=== PATIENT | male | born 1980 | race Caucasian/White ===

== ENCOUNTER 2021-02-09 02:14 | Emergency (ER) | payer OTHER ==
[2021-02-09] MEDS ORDERED: LODINE CAP 300300 MG PO (03:00)
[2021-02-09] MEDS ORDERED: VENTOLIN HFA 66.7 GM INH (03:00)
== END 2021-02-09 06:35 | disposition home or self-care (01) ==
LOC: ER1 02:14
DX: Z23 Encounter for immunization (principal); U07.1 COVID-19
CPT/HCPCS: 93005; 96374; 99284; J1100; M0243